=== PATIENT | female | born 1950 ===

== ENCOUNTER 2022-04-12 09:07 | Day surgery (SDC) | payer MEDICARE, BC ==
[~2022-04-12] VITALS: Ht 162.6 cm; Wt 90.1 kg
[2022-04-12] MEDS ORDERED: CELE200 PO (09:18)
--- NOTE | 2022-04-12 09:23 | NUR ---
04/12/22 0923 Rosas Pisano CALL LIGHT WITHIN REACH. TETRACAINE IN AT 0919 IN RIGHT EYE AND PLEDGETT AT 0921
== END 2022-04-12 10:20 | disposition home or self-care (01) ==
LOC: ORSCSDS 09:07
PROVIDERS: Student in an Organized Health Care Education/Training Program
PROC: 08RJ3JZ Replacement of Right Lens with Synthetic Substitute, Percutaneous Approach (ICD-10-PCS; principal; 2022-04-12 10:30)
DX: H25.11 Age-related nuclear cataract, right eye (principal); Z96.1 Presence of intraocular lens
CPT/HCPCS: J2001; J2250; J3010; J7040; V2632

== ENCOUNTER 2022-10-31 19:34 | Emergency (ER) | payer MEDICARE, BC ==
[~2022-10-31] VITALS: Ht 165.1 cm; Wt 77.1 kg
[~2022-10-31 19:34] MED LIST: CELE200 PO
[2022-10-31 20:10] VITALS: BP 166/89
== END 2022-10-31 20:42 | disposition home or self-care (01) ==
LOC: ER 19:34
DX: S91.112A Laceration without foreign body of left great toe without damage to nail, initial encounter (principal); Z88.0 Allergy status to penicillin; Z88.2 Allergy status to sulfonamides; Z79.899 Other long term (current) drug therapy; W27.8XXA Contact with other nonpowered hand tool, initial encounter
CPT/HCPCS: 12001; 99282-25

== ENCOUNTER 2023-06-22 13:29 | Day surgery (SDC) | payer MEDICARE, BC ==
[~2023-06-22] VITALS: Ht 162.6 cm; Wt 85.1 kg
[~2023-06-22 13:29] MED LIST changes: +Atropine Sulfate 0.1 MG/ML 10ML SYR ONE; +Glycopyrrolate 0.2 MG/ML 1MLVIAL ONE; +Lactated Ringer's 1,000 ML IV ONE; +Lidocaine 2% 5 ML SDV ONE; +Lidocaine HCl/Pf 1% 5 ML VIAL ONE; +Methylene Blue 1% 100 MG/10 ML VIAL ONE; +Ondansetron HCl 2 MG / ML 2ML Vial ONE; +ePHEDrine Sulfate 50 MG/ML 1ML Injection ONE; +propofoL 50 ML IV ONE
[2023-06-22] MEDS ORDERED: Lactated Ringer's 1,000 ML IV ONE (15:20)
[2023-06-22] MEDS ORDERED: propofoL 50 ML IV ONE (16:07)
[2023-06-22 17:08] VITALS: BP 130/76
== END 2023-06-22 16:55 | disposition home or self-care (01) ==
LOC: ORSCSDS 13:29
PROVIDERS: Surgery
PROC: 0DBK8ZX Excision of Ascending Colon, Via Natural or Artificial Opening Endoscopic, Diagnostic (ICD-10-PCS; principal; 2023-06-22 14:45)
PROC: 0DB78ZX Excision of Stomach, Pylorus, Via Natural or Artificial Opening Endoscopic, Diagnostic (ICD-10-PCS; principal; 2023-06-22 14:45)
PROC: 0DB48ZX Excision of Esophagogastric Junction, Via Natural or Artificial Opening Endoscopic, Diagnostic (ICD-10-PCS; principal; 2023-06-22 14:45)
PROC: 0DB98ZX Excision of Duodenum, Via Natural or Artificial Opening Endoscopic, Diagnostic (ICD-10-PCS; principal; 2023-06-22 14:45)
PROC: 0DBN8ZX Excision of Sigmoid Colon, Via Natural or Artificial Opening Endoscopic, Diagnostic (ICD-10-PCS; principal; 2023-06-22 14:45)
DX: Z12.11 Encounter for screening for malignant neoplasm of colon (principal); K21.9 Gastro-esophageal reflux disease without esophagitis; K29.80 Duodenitis without bleeding; K29.70 Gastritis, unspecified, without bleeding; D12.2 Benign neoplasm of ascending colon; D12.5 Benign neoplasm of sigmoid colon; R13.14 Dysphagia, pharyngoesophageal phase; K44.9 Diaphragmatic hernia without obstruction or gangrene; K64.8 Other hemorrhoids; E78.5 Hyperlipidemia, unspecified; I10 Essential (primary) hypertension; Z79.899 Other long term (current) drug therapy
CPT/HCPCS: 88305; 88312; 88341; 88342; J0461; J2001; J2405; J2704; J7120; Q9968